=== PATIENT | female | born 1955 | race Two or more races ===

== ENCOUNTER 2021-10-02 17:45 | Emergency (ER) | payer OTHER ==
[2021-10-02] MEDS ORDERED: Sodium Chloride 0.9% 10 ML Syringe FLUSH PRN ×2 (17:54→18:13)
[2021-10-02] MEDS ORDERED: Sodium Chloride 0.9% 2.5 ML Syringe FLUSH PRN ×2 (17:54→18:13)
--- NOTE | 2021-10-02 18:04 | PCM.EKG ---
#1 Interpretation EKG Date: 10/02/21 Time: 17:49 Rhythm: NSR Rate (Beats/Min): 63 [place]: Normal P-Wave: Present QRS: Normal ST-T: Normal QT: Normal Comparison: NA - No Prior EKG EKG Interpretation Comments: Sinus Rhythm
[2021-10-02] MEDS ORDERED: Sodium Chloride 0.9% 20 ML SDV IV PRN (18:13)
--- NOTE | 2021-10-02 18:21 | EDM.PDOC ---
<Case Gaines - Last Filed: 10/02/21 19:29> ED HPI GENERAL MEDICAL PROBLEM - General Chief Complaint: General Stated Complaint: DIZZY Time Seen by Provider: 10/02/21 17:54 - History of Present Illness INITIAL COMMENTS - FREE TEXT/NARRATIVE: CHIEF COMPLAINT(S): Dizziness HISTORY OF PRESENT ILLNESS: This is a 66-year-old woman without any reported past medical history who presents to the emergency department as a medical resuscitation via EMS with a chief complaint of dizziness. The patient states that abruptly approximately 2 hours ago she started to experience dizziness. She states that the room does feel like she is spinning but she has severe trouble walking. She states that she is unable to walk since that time. She states that she does not walk with a walker or use a cane and normally ambulates on her own without any difficulty. She denies any chest pain, shortness of breath, abdominal pain, nausea or vomiting. She denies any head injury. She denies any use of oral anticoagulation. She states that she is never had a history of CAD, CHF, atrial fibrillation, CVA. She states that she normally does not have any weakness but was just diagnosed with chronic fatigue syndrome. REVIEW OF SYSTEMS: Constitutional: Denies fever, chills. Eyes: Denies eye pain Ears, Nose, Mouth, & Throat: Denies earache Cardiovascular: Denies chest pain Respiratory: Denies shortness of breath Gastrointestinal: Denies Nausea, vomiting, diarrhea, hematochezia. Genitourinary: Denies hematuria Skin:Denies a rash Neurological: Positive for dizziness and difficulty with ambulation. Denies gabrielle rred vision, loss of vision Psychiatric: Denies depression PAST MEDICAL HISTORY: As per history of present illness and as reviewed below otherwise noncontributory. SURGICAL HISTORY: As per history of present illness and as reviewed below otherwise noncontributory. SOCIAL HISTORY: As per history of present illness and as reviewed below otherwise noncontributory. FAMILY HISTORY: As per history of present illness and as reviewed below otherwise noncontributory. EXAMINATION OF ORGAN SYSTEMS/BODY AREAS: VITALS:. GENERAL: The patient is well-nourished, well-developed, in no acute distress. HEAD: Normocephalic, atraumatic. EYES: EOMs intact. Bilateral nystagmus. No vertical nystagmus. Pupils were 3 mm and reactive bilaterally. No visual field defects ENT. External ears WNL. Nares patent. Oropharynx is clear with no erythema or exudate. No uvular or tongue swelling. NECK: Supple, no masses. Trachea is midline. LUNGS: No tachypnea or intercostal retractions. Clear to auscultation bilaterally, no wheezing, no rales, no stridor, no rhonchi. CARDIOVASCULAR: Regular rate and rhythm with S1-S2. No murmur, rubs or gallops. No edema. No JVD. ABDOMEN: Soft, non-distended, non-tender. Bowel sounds present in all 4 quadrants. No rebound tenderness, guarding, or peritoneal signs. MUSCULOSKELETAL: No deformity. Patient is moving all 4 limbs spontaneously. NEUROLOGICAL: Alert and oriented x3. Patient is able to smile without any facial asymmetry. NIH stroke scale of once or for mild slurred speech. Ggzrmw-[id number] and ygvn-ng-[id number] are normal. The patient has severe ataxia when walking.. SKIN: No rashes, or pallor. No signs of injury. MEDICAL DECISION MAKING AND COURSE IN THE ED WITH INTERPRETATION/REVIEW OF DIAGNOSTIC STUDIES: This is a 66-year-old woman who presents to the emergency department as a medical resuscitation via EMS with a chief complaint of dizziness. Immediately upon entering the resuscitation room the patient was disrobed, placed on continuous cardiac monitoring, and IV access was established by nursing. Patient is able to speak thus displaying a patent airway, breath sounds are equal bilaterally, and patient has palpable pulses in all 4 e xtremities. At this time the patient did have severe difficulty with walking and ataxia with some mild slurred speech with an NIH stroke scale of 1. Given the sudden onset dizziness I do believe this could be secondary to a central process. We will initiate a stroke code. Dzjqp-[id number] glucose was 98. Patient has no TPA contraindications at this time. The radiological images were viewed by myself along with reading the report from the radiologist. CT without contrast does not reveal any acute intracranial hemorrhage. After CT Noncon I did contact [facility] in [place] and spoke with Dr. Joyce who stated that if the patient does have ambulatory dysfunction and this was acute in onset and patient was ambulatory prior with the mild slurred speech he does recommend TPA given that she is in the window. He recommended discussion with the family regarding risks and benefits and to further clarify if this is acute onset. After imaging the patient's daughter was at bedside. I did reevaluate the patient. The patient's daughter stated that her voice is unchanged from prior. We did get the patient up to ambulate and at this time the patient's daughter stated the patient has been ambulating like this for months likely 8 or greater. It was at this time that the patient stated that she does have to hold onto things when she walks. She states that this have been going on for months. Therefore given that her symptoms have been going on for greater than 4-1/2 h TPA is contraindicated. I did discuss with the daughter and patient at bedside that we would complete further work-up and come up with a disposition. It was at this point that the daughter stated that the patient does have a history of hypothyroidism and did have prior fluid around her heart. This was recently d iscussed with her at her primary care physician in [place]. Laboratory: CBC reveals a normocytic anemia with a hemoglobin 11.9 otherwise unremarkable. INR and PTT are normal. CMP reveals elevated BUN at 20 and a creatinine of 1.2 which is up from prior. Jhgyt-qn-aaax glucose was 92. AST is mildly elevated at 63 and troponin is negative. Serum alcohol is negative. I did perform a bedside ultrasound given the concern for pericardial effusion. Bedside cardiac ultrasound Cardiac ultrasound did reveal evidence of a small pericardial effusion. There was no right atrial collapse during diastole and no evidence of right heart strain concerning for tamponade physiology. Ejection fraction appeared normal. Interpretation: Mild pericardial effusion without tamponade physiology. I did discuss the case with signout physician and the patient is pending final reads of CTAs and further laboratory analysis and final disposition. DISPOSITION: [facility] pending further imaging and final disposition CONDITION: Fair FINAL IMPRESSION(S)/DIAGNOSES: 1. Ambulatory dysfunction, likely chronic 2. Pericardial effusion, likely chronic - Related Data Allergies Allergy/AdvReac Type Severity Reaction Status Date / Time Penicillins Allergy Severe Hives Verified 10/02/21 18:38 prednisone Allergy Hyperactivi Verified 10/02/21 18:38 ty Home Meds: Home Meds Potassium Gluconate [Potassium] 10/02/21 [History] Past Medical History Other Respiratory History: "pulmonary edema thast put pressure on heart" ED ROS GENERAL - Review of Systems Review Of Systems: See Below ED EXAM, GENERAL - Physical Exam Exam: See Below Departure - Departure Disposition: Home, Self-Care 01 Clinical Impression: Dizziness - Discharge Information Instructions: Dizziness, [id number] Referrals: Steve Mcmahon [Primary Care Provider] - Forms: ED Department Discharge Additional Instructions: You need to follow-up with your primary care physician. Your emergency department work-up was negative for any emergent pathology, however, you are experiencing dizziness and difficulty with ambulation. You might need physical therapy. The following information is given to patients seen in the emergency department who are being discharged to home. This information is to outline your options f or follow-up care. We provide all patients seen in our emergency department with a follow-up referral. The need for follow-up, as well as the timing and circumstances, are variable depending upon the specifics of your emergency department visit. If you don't have a primary care physician on staff, we will provide you with a referral. We always advise you to contact your personal physician following an emergency department visit to inform them of the circumstance of the visit and for follow-up with them and/or the need for any referrals to a consulting specialist. The emergency department will also refer you to a specialist when appropriate. This referral assures that you have the opportunity for follow-up care with a specialist. All of these measure are taken in an effort to provide you with optimal care, which includes your follow-up. Under all circumstances we always encourage you to contact your private physician who remains a resource for coordinating your care. When calling for follow-up care, please make the office aware that this follow-up is from your recent emergency room visit. If for any reason you are refused follow-up, please contact the [facility] Emergency Department at and asked to speak to the emergency department charge nurse. Please follow up with your primary care physician. If you do not have a primary care physician, see below: [facility] [address] [place] [id number] [facility] [address] [place] [address] [facility] [address] [place] [id number] <Joss Perales - Last Filed: 10/02/21 22:39> Course - Vital Signs Last Recorded V/S: Last Vital Signs Temp 97.6 F 10/02/21 18:33 Pulse 61 10/02/21 20:40 Resp 18 10/02/21 20:40 BP 151/84 H 10/02/21 20:40 Pulse Ox 97 10/02/21 20:40 - Orders/Labs/Meds Orders: Active Orders 24 hr Category Date Time Status Assess Neurological Status [RC] ASDIRECTED Care 10/02/21 18:13 Active Bedrest [RC] ASDIRECTED Care 10/02/21 18:13 Active Cardiac Monitoring [RC] . DIRECTED Care 10/02/21 18:13 Active Height and Weight [RC] UPON Care 10/02/21 18:13 Active Initiate Acute Stroke Protocol [RC] STAT Care 10/02/21 18:13 Active NIH Stroke Scale [RC] ASDIRECTED Care 10/02/21 18:13 Active Vital Signs [RC] Q15M Care 10/02/21 18:13 Active Sodium Chloride 0.9% [Normal Saline] Med 10/02/21 18:13 Active 10 ml IV ASDIRECTED PRN Sodium Chloride 0.9% [Saline Flush] Med 10/02/21 17:54 Active 10 ml FLUSH ASDIRECTED PRN Sodium Chloride 0.9% [Saline Flush] Med 10/02/21 18:13 Active 10 ml FLUSH ASDIRECTED PRN Sodium Chloride 0.9% [Saline Flush] Med 10/02/21 17:54 Active 2.5 ml FLUSH ASDIRECTED PRN Sodium Chloride 0.9% [Saline Flush] Med 10/02/21 18:13 Active 2.5 ml FLUSH ASDIRECTED PRN diphenhydrAMINE [Benadryl] Med 10/02/21 22:38 Once 25 mg PO ONETIME ONE Peripheral IV Insertion Adult [OM.PC] Stat Oth 10/02/21 18:13 Ordered Peripheral IV Insertion Adult [OM.PC] Stat Oth 10/02/21 18:13 Ordered Saline Lock Insert [OM.PC] Stat Oth 10/02/21 17:54 Ordered Medication Orders Sodium Chloride (Sodium Chloride 0.9% 10 Ml Syringe) 10 ml FLUSH ASDIRECTED PRN PRN Reason: Keep Vein Open Last Admin: 10/02/21 18:50 Dose: 10 ml Documented by: KACY Sodium Chloride (Sodium Chloride 0.9% 2.5 Ml Syringe) 2.5 ml FLUSH ASDIRECTED PRN PRN Reason: Keep Vein Open Sodium Chloride (Sodium Chloride 0.9% 10 Ml Syringe) 10 ml FLUSH ASDIRECTED PRN PRN Reason: Keep Vein Open Sodium Chloride (Sodium Chloride 0.9% 2.5 Ml Syringe) 2.5 ml FLUSH ASDIRECTED PRN PRN Reason: Keep Vein Open Sodium Chloride (Sodium Chloride 0.9% 20 Ml Sdv) 10 ml IV ASDIRECTED PRN PRN Reason: IV Use Labs: Laboratory Tests 10/02/21 10/02/21 10/02/21 Range/Units 18:10 18:10 18:10 WBC 7.76 (4.0-11.0) K/uL RBC 3.96 L (4.30-5.90) M/uL Hgb 11.9 L (12.0-16.0) g/dL Hct 37.6 (36.0-46.0) % MCV 94.9 (80.0-98.0) fL MCH 30.1 (27.0-32.0) pg MCHC 31.6 (31.0-37.0) g/dL RDW Std Deviation 54.5 (28.0-62.0) fl RDW Coeff of Aba 16 H (11.0-15.0) % Plt Count 219 (150-400) K/uL MPV 10.00 (7.40-12.00) fL Neut % (Auto) 75.6 (48.0-80.0) % Lymph % (Auto) 18.7 (16.0-40.0) % [place] % (Auto) 3.7 (0.0-15.0) % Eos % (Auto) 1.9 (0.0-7.0) % Baso % (Auto) 0.1 (0.0-1.5) % Neut # (Auto) 5.9 H (1.4-5.7) K/uL Lymph # (Auto) 1.5 (0.6-2.4) K/uL [place] # (Auto) 0.3 (0.0-0.8) K/uL Eos # (Auto) 0.2 (0.0-0.7) K/uL Baso # (Auto) 0.0 (0.0-0.1) K/uL Nucleated RBC % 0.0 /100WBC Nucleated RBCs # 0 K/uL INR 1.03 APTT 28.6 (18.6-31.3) SEC Sodium 140 (136-145) mmol/L Potassium 3.7 (3.5-5.1) mmol/L Chloride 102 (98-107) mmol/L Carbon Dioxide 28.8 (21.0-32.0) mmol/L BUN 20 H (7.0-18.0) mg/dL Creatinine 1.2 H (0.6-1.0) mg/dL Est Cr Clr Drug Dosing 33.86 mL/min Estimated GFR (MDRD) 44.7 ml/min Glucose 97 (74-106) mg/dL POC Glucose (70-99) mg/dL Calcium 9.4 (8.5-10.1) mg/dL Total Bilirubin 0.5 (0.2-1.0) mg/dL AST 63 H (15-37) IU/L ALT 42 (14-63) IU/L Alkaline Phosphatase 53 (46-116) U/L Troponin I < 0.050 (0.000-0.056) ng/mL Total Protein 8.1 (6.4-8.2) g/dL Albumin 4.4 (3.4-5.0) g/dL Globulin 3.7 (2.6-4.0) g/dL Albumin/Globulin Ratio 1.2 (0.9-1.6) Lipase 131 (73-393) U/L TSH, Ultra Sensitive (0.36-3.74) uIU/mL Urine Color Urine Appearance Urine pH (5.0-8.0) Ur Specific [place] (1.001-1.035) Urine Protein (NEGATIVE) mg/dL Urine Glucose (UA) (NEGATIVE) mg/dL Urine Ketones (NEGATIVE) mg/dL Urine Occult Blood (NEGATIVE) Urine Nitrite (NEGATIVE) Urine Bilirubin (NEGATIVE) Urine Urobilinogen (<2.0) EU/dL Ur Leukocyte Esterase (NEGATIVE) Urine RBC (0-2/HPF) Urine WBC (0-5/HPF) Ur Epithelial Cells (NONE-FEW) Urine Bacteria (NEGATIVE) Urine Opiates Screen (NEGATIVE) Ur Oxycodone Screen (NEGATIVE) Urine Methadone Screen (NEGATIVE) Ur Barbiturates Screen (NEGATIVE) Ur Phencyclidine Scrn (NEGATIVE) Ur Amphetamine Screen (NEGATIVE) U Methamphetamines Scrn (NEGATIVE) U Benzodiazepines Scrn (NEGATIVE) U Cocaine Metab Screen (NEGATIVE) U Marijuana (THC) Screen (NEGATIVE) Ethyl Alcohol mg/dL SARS-CoV-2 RNA (HAWA) (NEGATIVE) 10/02/21 10/02/21 10/02/21 Range/Units 18:10 18:15 19:08 WBC (4.0-11.0) K/uL RBC (4.30-5.90) M/uL Hgb (12.0-16.0) g/dL Hct (36.0-46.0) % MCV (80.0-98.0) fL MCH (27.0-32.0) pg MCHC (31.0-37.0) g/dL RDW Std Deviation (28.0-62.0) fl RDW Coeff of Aba (11.0-15.0) % Plt Count (150-400) K/uL MPV (7.40-12.00) fL Neut % (Auto) (48.0-80.0) % Lymph % (Auto) (16.0-40.0) % [place] % (Auto) (0.0-15.0) % Eos % (Auto) (0.0-7.0) % Baso % (Auto) (0.0-1.5) % Neut # (Auto) (1.4-5.7) K/uL Lymph # (Auto) (0.6-2.4) K/uL [place] # (Auto) (0.0-0.8) K/uL Eos # (Auto) (0.0-0.7) K/uL Baso # (Auto) (0.0-0.1) K/uL Nucleated RBC % /100WBC Nucleated RBCs # K/uL INR APTT (18.6-31.3) SEC Sodium (136-145) mmol/L Potassium (3.5-5.1) mmol/L Chloride (98-107) mmol/L Carbon Dioxide (21.0-32.0) mmol/L BUN (7.0-18.0) mg/dL Creatinine (0.6-1.0) mg/dL Est Cr Clr Drug Dosing mL/min Estimated GFR (MDRD) ml/min Glucose (74-106) mg/dL POC Glucose 92 (70-99) mg/dL Calcium (8.5-10.1) mg/dL Total Bilirubin (0.2-1.0) mg/dL AST (15-37) IU/L ALT (14-63) IU/L Alkaline Phosphatase (46-116) U/L Troponin I (0.000-0.056) ng/mL Total Protein (6.4-8.2) g/dL Albumin (3.4-5.0) g/dL Globulin (2.6-4.0) g/dL Albumin/Globulin Ratio (0.9-1.6) Lipase (73-393) U/L TSH, Ultra Sensitive 87.84 H (0.36-3.74) uIU/mL Urine Color Urine Appearance Urine pH (5.0-8.0) Ur Specific [place] (1.001-1.035) Urine Protein (NEGATIVE) mg/dL Urine Glucose (UA) (NEGATIVE) mg/dL Urine Ketones (NEGATIVE) mg/dL Urine Occult Blood (NEGATIVE) Urine Nitrite (NEGATIVE) Urine Bilirubin (NEGATIVE) Urine Urobilinogen (<2.0) EU/dL Ur Leukocyte Esterase (NEGATIVE) Urine RBC (0-2/HPF) Urine WBC (0-5/HPF) Ur Epithelial Cells (NONE-FEW) Urine Bacteria (NEGATIVE) Urine Opiates Screen (NEGATIVE) Ur Oxycodone Screen (NEGATIVE) Urine Methadone Screen (NEGATIVE) Ur Barbiturates Screen (NEGATIVE) Ur Phencyclidine Scrn (NEGATIVE) Ur Amphetamine Screen (NEGATIVE) U Methamphetamines Scrn (NEGATIVE) U Benzodiazepines Scrn (NEGATIVE) U Cocaine Metab Screen (NEGATIVE) U Marijuana (THC) Screen (NEGATIVE) Ethyl Alcohol < 3.0 mg/dL SARS-CoV-2 RNA (HAWA) NEGATIVE (NEGATIVE) 10/02/21 10/02/21 Range/Units 20:00 20:00 WBC (4.0-11.0) K/uL RBC (4.30-5.90) M/uL Hgb (12.0-16.0) g/dL Hct (36.0-46.0) % MCV (80.0-98.0) fL MCH (27.0-32.0) pg MCHC (31.0-37.0) g/dL RDW Std Deviation (28.0-62.0) fl RDW Coeff of Aba (11.0-15.0) % Plt Count (150-400) K/uL MPV (7.40-12.00) fL Neut % (Auto) (48.0-80.0) % Lymph % (Auto) (16.0-40.0) % [place] % (Auto) (0.0-15.0) % Eos % (Auto) (0.0-7.0) % Baso % (Auto) (0.0-1.5) % Neut # (Auto) (1.4-5.7) K/uL Lymph # (Auto) (0.6-2.4) K/uL [place] # (Auto) (0.0-0.8) K/uL Eos # (Auto) (0.0-0.7) K/uL Baso # (Auto) (0.0-0.1) K/uL Nucleated RBC % /100WBC Nucleated RBCs # K/uL INR APTT (18.6-31.3) SEC Sodium (136-145) mmol/L Potassium (3.5-5.1) mmol/L Chloride (98-107) mmol/L Carbon Dioxide (21.0-32.0) mmol/L BUN (7.0-18.0) mg/dL Creatinine (0.6-1.0) mg/dL Est Cr Clr Drug Dosing mL/min Estimated GFR (MDRD) ml/min Glucose (74-106) mg/dL POC Glucose (70-99) mg/dL Calcium (8.5-10.1) mg/dL Total Bilirubin (0.2-1.0) mg/dL AST (15-37) IU/L ALT (14-63) IU/L Alkaline Phosphatase (46-116) U/L Troponin I (0.000-0.056) ng/mL Total Protein (6.4-8.2) g/dL Albumin (3.4-5.0) g/dL Globulin (2.6-4.0) g/dL Albumin/Globulin Ratio (0.9-1.6) Lipase (73-393) U/L TSH, Ultra Sensitive (0.36-3.74) uIU/mL Urine Color YELLOW Urine Appearance HAZY Urine pH 7.0 (5.0-8.0) Ur Specific [place] 1.015 (1.001-1.035) Urine Protein TRACE H (NEGATIVE) mg/dL Urine Glucose (UA) NEGATIVE (NEGATIVE) mg/dL Urine Ketones NEGATIVE (NEGATIVE) mg/dL Urine Occult Blood NEGATIVE (NEGATIVE) Urine Nitrite NEGATIVE (NEGATIVE) Urine Bilirubin NEGATIVE (NEGATIVE) Urine Urobilinogen 0.2 (<2.0) EU/dL Ur Leukocyte Esterase NEGATIVE (NEGATIVE) Urine RBC 0-1 (0-2/HPF) Urine WBC 2-5 (0-5/HPF) Ur Epithelial Cells RARE (NONE-FEW) Urine Bacteria FEW (NEGATIVE) Urine Opiates Screen NEGATIVE (NEGATIVE) Ur Oxycodone Screen NEGATIVE (NEGATIVE) Urine Methadone Screen NEGATIVE (NEGATIVE) Ur Barbiturates Screen NEGATIVE (NEGATIVE) Ur Phencyclidine Scrn NEGATIVE (NEGATIVE) Ur Amphetamine Screen NEGATIVE (NEGATIVE) U Methamphetamines Scrn NEGATIVE (NEGATIVE) U Benzodiazepines Scrn NEGATIVE (NEGATIVE) U Cocaine Metab Screen NEGATIVE (NEGATIVE) U Marijuana (THC) Screen NEGATIVE (NEGATIVE) Ethyl Alcohol mg/dL SARS-CoV-2 RNA (HAWA) (NEGATIVE) Meds: Medications Generic Name Dose Route Start Last Admin Trade Name Freq PRN Reason Stop Dose Admin Sodium Chloride 10 ml 10/02/21 17:54 10/02/21 18:50 Sodium Chloride 0.9% 10 Ml Syringe FLUSH 10 ml ASDIRECTED PRN Administration Keep Vein Open Sodium Chloride 2.5 ml 10/02/21 17:54 Sodium Chloride 0.9% 2.5 Ml Syringe FLUSH ASDIRECTED PRN Keep Vein Open Sodium Chloride 10 ml 10/02/21 18:13 Sodium Chloride 0.9% 10 Ml Syringe FLUSH ASDIRECTED PRN Keep Vein Open Sodium Chloride 2.5 ml 10/02/21 18:13 Sodium Chloride 0.9% 2.5 Ml Syringe FLUSH ASDIRECTED PRN Keep Vein Open Sodium Chloride 10 ml 10/02/21 18:13 Sodium Chloride 0.9% 20 Ml Sdv IV ASDIRECTED PRN IV Use Discontinued Medications Generic Name Dose Route Start Last Admin Trade Name Alana PRN Reason Stop Dose Admin Iopamidol 100 ml 10/02/21 18:37 10/02/21 18:37 Iopamidol 755 Mg/Ml 500 Ml Multipack Bottle IVPUSH 10/02/21 18:38 100 ml ONETIME STA Administration Tramadol HCl 50 mg 10/02/21 21:35 10/02/21 21:42 Tramadol 50 Mg Tab PO 10/02/21 21:36 50 mg ONETIME ONE Administration - Re-Assessments/Exams Free Text/Narrative Re-Assessment/Exam: 10/02/21 22:38 Patient ambulatory. She was complaining some back pain so tramadol was given. Recommend follow-up with primary care physician. Patient may benefit from physical therapy. Departure - Departure Time of Disposition: 22:38 Condition: Good Sepsis Event Note (ED) - Focused Exam Vital Signs: Vital Signs Temp Pulse Resp BP Pulse Ox 10/02/21 20:40 61 18 151/84 H 97 10/02/21 19:43 56 L 18 150/65 H 95 10/02/21 18:33 97.6 F 87 20 166/84 H 96 - My Orders Last 24 Hours: My Active Orders 10/02/21 22:38 diphenhydrAMINE [Benadryl] 25 mg PO ONETIME ONE - Assessment/Plan Last 24 Hours: My Active Orders 10/02/21 22:38 diphenhydrAMINE [Benadryl] 25 mg PO ONETIME ONE
[2021-10-02] MEDS ORDERED: Iopamidol 755 MG/ML 500 ML Multipack Bottle IVPUSH STA (18:37)
[2021-10-02 18:50] LABS: BLOOD UREA NITROGEN,BUN 20 mg/dL (7.0-18.0); CARBON DIOXIDE,CO2 28.8 mmol/L (21.0-32.0); CHLORIDE,CL 102 mmol/L (98-107); GLUCOSE RANDOM 97 mg/dL (74-106); LIPASE 131 U/L (73-393); POTASSIUM,K 3.7 mmol/L (3.5-5.1); SODIUM,NA 140 mmol/L (136-145)
--- NOTE | 2021-10-02 19:06 | CT ---
INDICATION: STROKE CT HEAD WITHOUT CONTRAST TECHNIQUE: Multiple axial CT images were performed through the head without intravenous contrast administration. COMPARISON: No previous studies are currently available for comparison. FINDINGS: No acute intracranial hemorrhage is identified. No extra-axial collections are evident and there is no mass effect or midline shift. There is mild diffuse age-related brain atrophy. Ventricular size and configuration are within normal limits for the patient`s age. Lenoe-white differentiation is within normal limits. There is mild patchy hypodensity in the periventricular white matter, a nonspecific finding which most likely reflects chronic small vessel ischemic change. Osseous structures are within normal limits and no fractures are seen. Included portions of the paranasal sinuses and mastoid air cells are normally aerated. IMPRESSION: 1. No acute intracranial abnormality identified. 2. Mild age-related brain atrophy and white matter hypodensity consistent with chronic small vessel ischemic change. Results were called to Eusebia Balbuena at 6:54 p.m. 10/02/2021. ALDO CAPUTO MD [facility] Dictated by Niranjan Caputo MD @ 10/02/2021 7:04:04 PM Please note that all CT scans at this facility use dose modulation, iterative reconstruction, and/or weight-based dosing when appropriate to reduce radiation dose to as low as reasonably achievable. Dictated by: Niranjan Caputo MD @ 10/02/2021 19:04:22 (Electronically Signed)
--- NOTE | 2021-10-02 19:08 | CT ---
DATE: 10/02/2021 CLINICAL HISTORY: Patient with focal neurological deficits. TECHNIQUE: Standard helical CT image acquisition of the neck up to the skull base after bolus intravenous contrast enhancement. Multiplanar reconstructed images performed on a separate workstation. COMPARISON: CT same day FINDINGS: The origins of the great vessels from the aortic arch are patent. The origin of the right vertebral artery is patent. The origin of the left vertebral artery demonstrates mild narrowing. The common carotid arteries are patent. There is a mild (<50%) stenosis at the origin of the right internal carotid artery by NASCET criteria. This is caused by non-calcified plaque with a <2mm residual lumen. There is no stenosis at the origin of the left internal carotid artery by NASCET criteria. The rest of the cervical segments of the internal carotid arteries are patent up to the skull base. The right vertebral artery is dominant. The cervical segments of the vertebral arteries are patent up to the skull base. The visualized intracranial vasculature is unremarkable. The visualized lung apices are unremarkable. The thyroid gland is unremarkable. The soft tissues of the neck are unremarkable. There are degenerative changes in the cervical spine. IMPRESSION: 1. Mild (<50%) stenosis at the origin of the right internal carotid artery by NASCET criteria caused by non-calcified plaque with a <2mm residual lumen. 2. Mild left vertebral artery origin stenosis. Please note that all CT scans at this facility use dose modulation, iterative reconstruction, and/or weight-based dosing when appropriate to reduce radiation dose to as low as reasonably achievable. Dictated by Lucas Macias MD @ 10/02/2021 10:12:08 PM (Electronically Signed)
--- NOTE | 2021-10-02 19:08 | CT ---
DATE: 10/02/2021 CLINICAL HISTORY: Patient with focal neurological deficits. TECHNIQUE: Standard helical CT image acquisition through the intracranial circulation following intravenous administration of contrast material with bolus tracking. Multiplanar reconstructed images were performed and interpreted. COMPARISON: CT same day FINDINGS: There is no cerebral aneurysm or large vessel occlusion. There is mild to moderate diffuse intracranial atherosclerosis. The right internal carotid artery is normal. The right middle cerebral artery and its branches are normal. The right anterior cerebral artery and its branches are normal. The left internal carotid artery is normal. The left middle cerebral artery and its branches are normal. The left anterior cerebral artery and its branches are normal. The anterior communicating artery is well visualized and appears normal. The basilar artery is patent and appears normal. IMPRESSION: 1. No cerebral aneurysm or large vessel occlusion. 2. Mild to moderate diffuse intracranial atherosclerosis. Please note that all CT scans at this facility use dose modulation, iterative reconstruction, and/or weight-based dosing when appropriate to reduce radiation dose to as low as reasonably achievable. Dictated by Lucas Macias MD @ 10/02/2021 10:08:03 PM (Electronically Signed)
--- NOTE | 2021-10-02 19:17 | CR ---
Indication: Stroke code Technique: AP portable view of the chest. Comparison: None Findings: The heart is borderline in size. The lungs are clear. No infiltrate, pleural effusion, or pneumothorax is identified. Impression: Borderline cardiomegaly Dictated by Tahira Mayo MD @ 10/02/2021 7:15:00 PM (Electronically Signed)
[2021-10-02] MEDS ORDERED: traMADol 50 MG Tab PO ONE (21:35)
[2021-10-02] MEDS ORDERED: diphenhydrAMINE 25 MG Cap PO ONE (22:38)
[2021-10-03 00:25] VITALS: BP 141/92; PULSE 85
== END 2021-10-02 23:10 | disposition home or self-care (01) ==
LOC: MW.ED 17:45
DX: R42 Dizziness and giddiness (principal); I31.3 Pericardial effusion (noninflammatory); R26.2 Difficulty in walking, not elsewhere classified; Z88.0 Allergy status to penicillin; Z88.8 Allergy status to other drugs, medicaments and biological substances; Z20.822 Contact with and (suspected) exposure to COVID-19
CPT/HCPCS: 36415; 70450; 70496; 70498; 71045; 80053; 80305; 80307; 81001; 82947; 83690; 84443; 84484; 85025; 85610; 85730; 87635; 99285; A9270; Q9967; U0002

== ENCOUNTER 2021-11-04 00:57 | Emergency (ER) | payer OTHER ==
--- NOTE | 2021-11-04 01:13 | EDM.PDOC ---
ED HPI GENERAL MEDICAL PROBLEM - General Chief Complaint: CPR in Progress Stated Complaint: CODE BLUE Time Seen by Provider: 11/04/21 01:01 - History of Present Illness INITIAL COMMENTS - FREE TEXT/NARRATIVE: HISTORY AND PHYSICAL: History of present illness: This is a 66-year-old female that was brought in by EMS as a CODE BLUE. Per EMS report they were called to the scene secondary to shortness of breath. They report that they had placed her on the [facility] and brought her into the ambulance when the patient became unresponsive, apneic and pulseless. ACLS was initiated and patient remained apneic and pulseless. Patient remained in asystole throughout the entire code. Patient was given 2 rounds of epinephrine and transferred to [place]. Patient was transferred to the [facility] and into room 4. Patient placed on the monitor where asystole was confirmed. Patient was given 1 amp of bicarb and 1 amp of epinephrine. I went and discussed the case with the patient's family as well as the who was on his way back from the [facility]. I spoke to the over the phone and explained to him the situation. He is in agreement with cessation of ACLS/CPR at this time. Review of systems: As per history of present illness and below otherwise all systems reviewed and negative. Past medical history: As per history of present illness and as reviewed below otherwise noncontributory. Surgical history: As per history of present illness and as reviewed below otherwise noncontributory. Social history: No reported history of drug abuse. Family history: As per history of present illness and as reviewed below otherwise noncontributory. Physical exam: GENERAL: 66-year-old female on the [facility] with CPR being performed HEAD: Normocephalic, atraumatic. EYES: Patient's pupils are fixed and dilated, 6 mm and fixed and equal bilaterally. No corneal reflex ENT: LMA in place. Equal breath sounds bilaterally NECK: Full range of motion without pain. No bony tenderness. No adenopathy. LUNGS: No spontaneous respirations. Patient does have bilateral breath sounds with LMA in place HEART: Patient is pulseless. Asystole on the monitor ABDOMEN: Nondistended abdomen with no rash. EXTREMITIES: Extremities cool BACK: Unremarkable NEUROLOGICAL: GCS 3 PSYCH: Patient unresponsive SKIN: No diaphoresis. Assessment and plan: 66-year-old female who presents to the ER today by EMS the post CODE BLUE in asystole with no spontaneous respirations or pulse despite 2 rounds of epinephrine. Patient was given a third round of epinephrine here in the ED without any change in her rhythm or pulse. I went out and discussed the case with the patient's family as well as her over the phone and at this time they are in agreement that we should stop further CPR/ACLS. Patient has been coded by EMS for approximately 25 minutes without any response and an additional 10 minutes here in the ED. Patient was pronounced in the ED with family at her bedside holding her hand. Definitive disposition and diagnosis as appropriate pending reevaluation and review of above. - Related Data Allergies Allergy/AdvReac Type Severity Reaction Status Date / Time Penicillins Allergy Severe Hives Unverified 11/04/21 01:04 prednisone Allergy Hyperactivi Verified 10/02/21 18:38 ty Home Meds: Home Meds Potassium Gluconate [Potassium] 10/02/21 [History] Past Medical History Other Respiratory History: "pulmonary edema thast put pressure on heart" Social & Family History - Caffeine Use Caffeine Use: Reports: None ED ROS GENERAL - Review of Systems Review Of Systems: See Below Reason Not Obtained: Patient admits of CODE BLUE and unresponsive Constitutional: Reports: No Symptoms ED EXAM, GENERAL - Physical Exam Exam: See Below Course - Vital Signs Last Recorded V/S: Last Vital Signs Temp Pulse 0 L 11/04/21 00:57 Resp 0 L 11/04/21 00:57 BP 0/0 L 11/04/21 00:57 Pulse Ox - Orders/Labs/Meds Meds: Medications Discontinued Medications Generic Name Dose Route Start Last Admin Trade Name Alana PRN Reason Stop Dose Admin Epinephrine HCl 1 mg 11/04/21 01:42 11/04/21 01:44 Epinephrine 1:10,000 1 Mg/10 Ml Syringe IVPUSH 11/04/21 01:43 1 mg ONETIME ONE Administration Epinephrine HCl 1 mg 11/04/21 01:43 11/04/21 01:44 Epinephrine 1:10,000 1 Mg/10 Ml Syringe IVPUSH 11/04/21 01:44 1 mg ONETIME ONE Administration Sodium Bicarbonate 50 meq 11/04/21 01:43 11/04/21 01:44 Sodium Bicarbonate 8.4% 50 Meq/50 Ml Syringe IVPUSH 11/04/21 01:44 50 meq ONETIME ONE Administration Departure - Departure Time of Disposition: 01:14 Disposition: 20 Preliminary Cause of *Q: Cardiac Arrest Condition: Critical Clinical Impression: Cardiac arrest - Discharge Information Referrals: PCP,None [Primary Care Provider] - Forms: ED Department Discharge Sepsis Event Note (ED) - Focused Exam Vital Signs: Vital Signs Pulse Resp BP 11/04/21 00:57 0 L 0 L 0/0 L
[2021-11-04 01:19] VITALS: BP 0/0; PULSE 0
[2021-11-04] MEDS ORDERED: EPINEPHrine 1:10,000 1 MG/10 ML Syringe IVPUSH ONE ×2 (01:42→01:43)
[2021-11-04] MEDS ORDERED: Sodium Bicarbonate 8.4% 50 MEQ/50 ML Syringe IVPUSH ONE (01:43)
== END 2021-11-04 02:58 | disposition expired ==
LOC: MW.ED 00:57
DX: I46.9 Cardiac arrest, cause unspecified (principal); Z88.0 Allergy status to penicillin; Z88.8 Allergy status to other drugs, medicaments and biological substances
CPT/HCPCS: 96374; 96375; 99285; J0171